=== PATIENT | female | born 1995 | race Caucasian/White ===

== ENCOUNTER → 2019-04-19 | Day surgery (SDC) | payer OTHER ==
[~2019-04-19] MED LIST: hydrALAZINE 20 MG/ML VIAL SLOW IVP PRN
[2019-04-19 18:42] VITALS: BMI 31.6
[2019-04-19 18:44] VITALS: BP 109/67; TEMP 99.2
[2019-04-19 19:32] LABS: Amnisure Internal Control QC ACCEPTABLE (ACCEPTABLE); Amnisure Test No Membranes Rupture (No Rupture)
--- NOTE | 2019-04-19 20:08 | PDOC.EVN ---
Event Note - Event Note Event Note: Patient seen at bedside. See dictation. Latent labor and negative reviewed with her.
--- NOTE | 2019-04-19 20:52 | PDOC.LDHP ---
Labor and Delivery H&P HPI: H&P Dicatted. This is secondary as DICTATION not yet up Here for CTX. Was 3cm in office today. then was negative. Good FM Current gestational age (weeks): 37 (4 days) Due date: 05/08/19 Dating criteria: last menstrual period Grav: 2 Para: 1 Current complications: none Abnormal US findings: No Current medications: pre-skyler vitamins Allergies/Adverse Reactions: Allergies Allergy/AdvReac Type Severity Reaction Status Date / Time penicillin G Allergy Verified 04/19/19 18:41 Sulfa (Sulfonamide Allergy Verified 04/19/19 18:40 Antibiotics) - Physical Exam Vital signs reviewed and normal: yes FHT: category 1 Hobson contractions every: every 3-5 - Vaginal Exam cm dilated: 3 Effacement: 50% Station: -2 - Assessment Latent labor at early term..unchanged from earlier exam in office. Amnisure sent...here as well, was negative - Plan Plan: observation in L&D (Latent labor reviewed. OK for outpatient follow up)
--- NOTE | 2019-04-21 10:25 | HP ---
TIME: Roughly 1950 hours. CHIEF COMPLAINT: Possible contractions. This is a patient of Dr. Adrianne Campos. EGA 37 weeks and 4 days. HISTORY OF PRESENT ILLNESS: In brief, this is a 24-year-old, G2, P1 with a history of a prior vaginal , whose EDC is May 08, placing her at 37 weeks and 4 days. She states that she was seen earlier today with Dr. Campos and an AmniSure was performed at that time, that was negative. She states now some irregular contractions since that office check. She was 3 cm, 50% effaced, and -2 in the office earlier today. She denies vaginal bleeding and has good movement. There is no fever reported. REVIEW OF SYSTEMS: Complete review of systems was performed, is otherwise negative unless specified in the HPI. PAST MEDICAL HISTORY: Negative. PAST SURGICAL HISTORY: None. ALLERGIES: SULFA AND PENICILLIN. OB HISTORY: Significant for a vaginal x1. PHYSICAL EXAMINATION: VITAL SIGNS: Stable. She is afebrile. heart tones are in the 130s to 140s on the monitor. GENERAL: She is in no acute distress. ABDOMEN: Soft and nontender. PELVIC: Reveals a cervix that is unchanged from earlier, which is 3 cm/50% effaced/-2 station. Interventions ordered. An AmniSure was collected and was negative. On monitor, heart tones in the 130s to 140s and they are reactive. There are some irregular contractions on the tocodynamometer. ASSESSMENT: This is a G2, P1, at 37 weeks and 4 days, no evidence of rupture of membranes, latent labor. PLAN: 1. Reassurance given. 2. No cervical change from before. 3. Okay for outpatient management. Job ID: [id number]
== END | disposition home or self-care (01) ==
LOC: L&D/OP 17:57
PROVIDERS: ATTEND Obstetrics & Gynecology
DX: O47.1 False labor at or after 37 completed weeks of gestation (principal); Z3A.37 37 weeks gestation of pregnancy; Z88.0 Allergy status to penicillin; Z88.2 Allergy status to sulfonamides
CPT/HCPCS: 84112; 99282

== ENCOUNTER 2019-04-21 12:26 | Inpatient (IN) | payer OTHER ==
[2019-04-21] MEDS ORDERED: Butorphanol Tartrate 1 MG/ML VIAL SLOW IVP PRN (12:44)
[2019-04-21] MEDS ORDERED: NS / Oxytocin 40 units/1000ml 1,000 ML IV PRN (12:44)
[2019-04-21] MEDS ORDERED: Docusate 100 MG CAP PO PRN (12:44)
[2019-04-21] MEDS ORDERED: Diphenoxylate HCl/Atropine Tablet PO PRN ×2 (12:44)
[2019-04-21] MEDS ORDERED: hydrALAZINE 20 MG/ML VIAL SLOW IVP PRN ×2 (12:44→23:47)
[2019-04-21] MEDS ORDERED: Promethazine HCl 25 MG/ML VIAL IM PRN (12:44)
[2019-04-21] MEDS ORDERED: Acetaminophen 500 MG TAB PO PRN (12:44)
[2019-04-21] MEDS ORDERED: Ibuprofen 800 MG TAB PO PRN (12:44)
[2019-04-21] MEDS ORDERED: Lidocaine 1% (PF) 30 ML VIAL SC PRN (12:44)
[2019-04-21] MEDS ORDERED: HYDROcodone/Acetaminophen 5/325 mg Tablet PO PRN ×2 (12:44)
[2019-04-21] MEDS ORDERED: Ondansetron PF 4 MG/2 ML Vial IVP PRN ×2 (12:44→23:47)
[2019-04-21] MEDS ORDERED: NS w/ Oxytocin 10 units 500 ML IV SCH ×2 (12:45)
[2019-04-21 12:48] VITALS: BMI 31.6
[2019-04-21] MEDS: Lactated Ringer's 1,000 ML IV SCH ×2 (12:59→14:30)
[2019-04-21] MEDS ORDERED: Fentanyl 4 mcg/Bup 0.1% Cadd 100 ML ONE ×2 (13:25→22:08)
[2019-04-21 13:43] LABS: Hemoglobin 9.1 g/dL (12.0-16.0); Mean Corpuscular HGB CONC 33.8 g/dL (32.0-36.0); Mean Corpuscular Hemoglobin 28.1 pg (27.0-31.0); Mean Platelet Volume 6.4 fL (7.4-10.4); Platelet Count 284 thou/uL (130-400); RBC Distribution Width 12.4 % (11.5-14.5); Red Blood Cell (RBC) Count 3.23 mill/uL (4.20-5.40); White Blood Cell (WBC) Count 10.5 thou/uL (4.8-10.8)
[2019-04-21 14:12] LABS: HBSAg Index 0.27 S/CO (0-0.99); Hep B Surf Ag Non-Reactive S/CO (NonReactive)
[2019-04-21 14:15] LABS: Syphilis Antibody Nonreactive (Nonreactive); Syphilis Antibody Index 0.03 S/CO (<1.00 Non-Reactive)
[2019-04-21] MEDS ORDERED: Bupivacaine HCl 0.5%/Epinephrine 1:200,000/PF 30 ml Vial ONE (16:22)
[2019-04-21] MEDS ORDERED: Lidocaine 2% MPF 10 ML AMP (For Epidural Use) ONE (16:22)
[2019-04-21] MEDS ORDERED: Bupivacaine 0.25% 10 ML VIAL ONE (16:22)
[2019-04-21] MEDS: NS / Oxytocin 40 units/1000ml 1,000 ML IV SCH (23:30)
[2019-04-21] MEDS ORDERED: Lanolin Ointment 7 GM TUBE TOP PRN (23:47)
[2019-04-21] MEDS ORDERED: diphenhydrAMINE 25 MG CAP PO PRN (23:47)
[2019-04-21] MEDS ORDERED: Bisacodyl 10 MG SUPP PR PRN (23:47)
[2019-04-21] MEDS ORDERED: Misoprostol 200 MCG TAB VAG PRN (23:47)
[2019-04-21] MEDS ORDERED: Milk Of Magnesia 30 ML UDCUP PO PRN (23:47)
[2019-04-21] MEDS ORDERED: Acetaminophen/Codeine 30-300mg Tablet PO PRN (23:47)
[2019-04-21] MEDS ORDERED: Zolpidem Tartrate 5 MG TAB PO PRN (23:47)
[2019-04-21] MEDS ORDERED: Preparation H Ointment 28 GM TUBE PR PRN (23:47)
[2019-04-21] MEDS ORDERED: Benzocaine-Menthol 82.5 ML CAN TOP PRN (23:47)
[2019-04-22] MEDS: Ibuprofen 800 MG TAB PO SCH ×4 (01:00→18:04)
[2019-04-22] MEDS: NS / Oxytocin 40 units/1000ml 1,000 ML IV SCH (02:10)
[2019-04-22] MEDS: Acetaminophen/Codeine 30-300mg Tablet PO PRN ×2 (06:14→15:17)
[2019-04-22] MEDS ORDERED: Adacel (T-DAP) 0.5 ML SYRINGE IM ONE (09:00)
[2019-04-22] MEDS ORDERED: FLU VACC QS2019-20(6MOS UP)/PF 60 MCG/0.5 ML SYRINGE IM ONE (09:00)
[2019-04-22] MEDS: Ferrous Sulfate 325 MG TAB PO SCH ×2 (09:49→18:04)
[2019-04-22] MEDS: Docusate Calcium (SURFAK) 240 MG CAP PO SCH ×2 (09:50→21:53)
[2019-04-22] MEDS: Prenatal Vitamin 1 TAB PO SCH (09:50)
[2019-04-22] MEDS ORDERED: Sodium Chloride 0.9% 10 ML ONE (11:43)
[2019-04-23] MEDS: Ibuprofen 800 MG TAB PO SCH ×3 (03:19→21:25)
[2019-04-23] MEDS ORDERED: Ondansetron ODT 4 MG TAB PO PRN (04:10)
[2019-04-23] MEDS ORDERED: Sodium Chloride 0.9% 10 ML ONE (09:12)
[2019-04-23] MEDS: Prenatal Vitamin 1 TAB PO SCH (09:16)
[2019-04-23] MEDS: Ferrous Sulfate 325 MG TAB PO SCH ×2 (09:16→20:20)
[2019-04-23] MEDS: Docusate Calcium (SURFAK) 240 MG CAP PO SCH ×2 (09:16→21:25)
[2019-04-24] MEDS: Ibuprofen 800 MG TAB PO SCH (05:29)
[2019-04-24 09:01] VITALS: BP 90/52; TEMP 98
[2019-04-24] MEDS: Prenatal Vitamin 1 TAB PO SCH (09:08)
[2019-04-24] MEDS: Ferrous Sulfate 325 MG TAB PO SCH (09:09)
[2019-04-24] MEDS: Docusate Calcium (SURFAK) 240 MG CAP PO SCH (09:09)
--- NOTE | 2019-04-26 01:47 | PQF ---
JJ BARNES L JUSTIN MD [id number] CLINICAL DOCUMENTATION CLARIFICATION FORM: POST DISCHARGE Addendum to original discharge summary date: ____ Late entry note date: __ DATE: 04/26/19 ATTN: Epi Colon Please exercise your independent, professional judgment in responding to the clarification form. Clinical indicators are provided on the bottom of this form for your review Can you please further clarify the diagnosis of the patient based on the clinical indicators below? Please check appropriate box(s): [x ] Acute blood loss anemia [ ] Post-op anemia related to acute blood loss [x ] Anemia unspecified [ ] Other diagnosis [ ] Unable to determine In addition, please specify: Present on Admission (POA): [ x] Yes [ ] No [ ] Unable to determine For continuity of documentation, please document condition throughout progress notes and discharge summary. Thank You. CLINICAL INDICATORS - SIGNS / SYMPTOMS / LABS LABS 04/21/19- Hgb: 9.1 L, hct: 26.8 L VITAL SIGNS 04/24- BP: 90/52 VITAL SIGNS 04/22- Pulse: 100 OB DS 04/24-s/p vacuum asst vaginal delivery Immediate Post OP- EBL 100cc RISK FACTORS EGA 37weeks- H and P pg.1 s/p vacuum asst vaginal delivery TREATMENTS: Ferrous sulfate 325 mg PO BID IV Fluids- MAR (This form is maintained as a part of the permanent medical record) 2014 [employer]. All Rights Reserved [email or web address] [not provided] [email or web address]
== END 2019-04-24 11:30 | disposition home or self-care (01) | DRG 806 ==
LOC: L&D 12:26 → 3SW 04-22 02:51
PROVIDERS: ADMIT Obstetrics & Gynecology; ATTEND Obstetrics & Gynecology
PROC: 10D07Z6 Extraction of Products of Conception, Vacuum, Via Natural or Artificial Opening (ICD-10-PCS; principal; 2019-04-21)
PROC: 10907ZC Drainage of Amniotic Fluid, Therapeutic from Products of Conception, Via Natural or Artificial Opening (ICD-10-PCS; 2019-04-21)
PROC: 3E033VJ Introduction of Other Hormone into Peripheral Vein, Percutaneous Approach (ICD-10-PCS; 2019-04-21)
PROC: 0UQMXZZ Repair Vulva, External Approach (ICD-10-PCS; 2019-04-21)
DX: O76 Abnormality in fetal heart rate and rhythm complicating labor and delivery (principal); D62 Acute posthemorrhagic anemia; Z37.0 Single live birth; O71.82 Other specified trauma to perineum and vulva; Z3A.37 37 weeks gestation of pregnancy; Z88.2 Allergy status to sulfonamides; Z88.0 Allergy status to penicillin; O89.4 Spinal and epidural anesthesia-induced headache during the puerperium; O99.02 Anemia complicating childbirth
CPT/HCPCS: 36415; 51702; 62272; 85027; 85461; 86780; 86850; 86900; 86901; 87340; 90384; 96372; J0670; J2001; J2405; J2590; S0020